=== PATIENT | male | born 1995 | race African-American/Black ===

== ENCOUNTER 2017-02-28 20:51 | Emergency (ER) | payer SELFPAY ==
[~2017-02-28] VITALS: Ht 167.6 cm; Wt 74.8 kg
[2017-02-28 20:56] VITALS: BP 172/82
--- NOTE | 2017-02-28 21:57 | PHYS DOC ---
Past Medical History Past Medical History: Asthma Past Surgical History: No Surgical History Alcohol Use: None Drug Use: None Adult General Chief Complaint Chief Complaint: CHEST PAIN HPI HPI 21-year-old male presenting the emergency department with pain in the chest. He describes it as sharp pain that is a radiates into his shoulders.. It is mild intermittent and without alleviating factors. He also has a headache. The patient denies unilateral leg swelling hemoptysis family or personal history of blood clotting disorders. The pt denies recent immobilization or surgery. Review of systems is negative for nausea vomiting diaphoresis. Negative for fevers or chills. All other review of systems is negative unless otherwise noted in history of present illness. Pertinent exam: Normal physical exam. Regular rate and rhythm. Clear lungs. ED course: 21-year-old male presenting with chest pain. EKG and chest x-ray unremarkable. Patient was in discharged home to follow up with PCP in 2-3 days. The patient was then discharged home in stable condition to follow up with their primary care physician over the next 2-3 days. They were to return if their symptoms worsened or if they were concerned for any reason. [id number] discharge instructions and return precautions were given. Patient's questions were answered to their satisfaction. Patient is comfortable plan. Review of Systems Review of Systems SEE ABOVE. Allergies Allergies Allergies Coded Allergies Type Severity Reaction Last Updated Verified No Known Drug Allergies 02/28/17 No Physical Exam Physical Exam Constitutional: Well developed, well nourished, no acute distress, non-toxic appearance. HENT: Normocephalic, atraumatic, bilateral external ears normal, oropharynx moist, no oral exudates, nose normal. [] Eyes: PERRLA, EOMI, conjunctiva normal, no discharge. [] Neck: Normal range of motion, no tenderness, supple, no stridor. Cardiovascular:Heart rate regular rhythm, no murmur Lungs & Thorax: Bilateral breath sounds clear to auscultation [] Abdomen: Bowel sounds normal, soft, no tenderness, no masses, no pulsatile masses. [] Skin: Warm, dry, no erythema, no rash. Back: No tenderness, no CVA tenderness. [] Extremities: No tenderness, no cyanosis, no clubbing, ROM intact, no edema. Neurologic: Alert and oriented X 3, normal motor function, normal sensory function, no focal deficits noted. [] Psychologic: Affect normal, judgement normal, mood normal. [] Current Patient Data Vital Signs Vital Signs Date Time Temp Pulse Resp B/P (MAP) Pulse Ox O2 Delivery O2 Flow Rate FiO2 02/28/17 20:56 98.4 88 20 172/82 (112) 99 Room Air 98.4 EKG EKG EKG shows sinus rhythm heart rate less than 100. ST segments show mild repolarization in lead V3 that is noncontiguous and with concavity upwards. [] Nonspecific T-wave inversions in lead 3 and aVF. Radiology/Procedures Radiology/Procedures Chest x-ray reviewed by myself shows no obvious infiltrate or pneumothorax present. No obvious acute cardiopulmonary process present.[] Course & Med Decision Making Course & Med Decision Making Pertinent Labs and Imaging studies reviewed. (See chart for details) [] Dragon Disclaimer Dragon Disclaimer This electronic medical record was generated, in whole or in part, using a voice recognition dictation system. Departure Departure Impression: Primary Impression: Chest pain Disposition: HOME, SELF-CARE Condition: STABLE Referrals: RICHY ADHIKARI MD Patient Instructions: Chest Pain (Nonspecific) Additional Instructions: Thank you for allowing us to participate in your care today. Followup with your primary care physician in 3 days if your symptoms do not improve. If you do not have a primary care provider you can ask for a list of our primary care providers. Return to the emergency department you have any new or concerning findings. This should be evaluated by the primary care physician and any necessary consulting services for continued management within a few days after discharge. Return to emergency room if you have any new or concerning symptoms including but not limited to fever, chills, nausea, vomiting, intractable pain, any new rashes, chest pain, shortness of air, uncontrolled bleeding, difficulty breathing, and/or vision loss. CAROL MOCK MD Feb 28, 2017 21:57
--- NOTE | 2017-03-01 08:22 | RAD ---
EXAM: Chest one view. HISTORY: Chest pain. COMPARISON: None. FINDINGS: A frontal view of the chest is obtained. There are no confluent infiltrates. There is no pneumothorax or pleural effusion. The heart is not enlarged. IMPRESSION: 1. No confluent infiltrates.
--- NOTE | 2017-03-01 12:12 | EKG ---
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
== END 2017-02-28 22:22 | disposition home or self-care (01) ==
LOC: ER 20:51
DX: R07.89 Other chest pain (principal); R51 Headache; J45.909 Unspecified asthma, uncomplicated
CPT/HCPCS: 71010; 93005; 99284-25